=== PATIENT | female | born 1970 | race Caucasian/White ===

== ENCOUNTER 2017-01-16 10:55 | Emergency (ER) | payer MEDICAID, OTHER ==
[~2017-01-16] VITALS: Wt 71.0 kg
[2017-01-16] MEDS ORDERED: ONDANSETRON (ODT) 4 MG TAB ODT STA (11:27)
[2017-01-16] MEDS ORDERED: HYDROCODONE/APAP (5/325) TAB PO ONE (11:30)
--- NOTE | 2017-01-16 11:31 | ERD ---
ER Documentation Chief Complaint Date/Time DATE: 01/16/17 TIME: 11:30 Chief Complaint EPIGASTRIC PAIN SINCE YESTERDAY. NAUSEA NO VOMITING. AFTER EATING CARNITAS HPI 46-year-old, with history of hypertension, diabetes, hyperlipidemia presents with epigastric abdominal pain with nausea, vomiting started last night. She states that is sharp, achy, radiates to the right upper quadrant associated with nausea only. She denies fevers or chills, vomiting or diarrhea. She denies chest pain shortness of breath. ROS All systems reviewed and are negative except as per history of present illness. Medications Home Meds Active Scripts Ondansetron (Ondansetron Odt) 4 Mg Tab.rapdis, 4 MG PO Q6H Y for NAUSEA AND/OR VOMITING, #10 TAB Prov:SCOTT SOLO PA-C 01/16/17 Hydrocodone/Acetaminophen (Salcha 5-325 Tablet) 1 Each Tablet, 1 TAB PO Q6H Y for PAIN, #15 TAB Prov:SCOTT SOLO PA-C 01/16/17 Cephalexin* (Keflex*) 500 Mg Capsule, 500 MG PO TID for 10 Days, CAP Prov:SCOTT SOLO PA-C 01/16/17 Allergies Allergies: Coded Allergies: No Known Allergy (Unverified , 01/16/17) Physical Exam Vitals Vital Signs Date Time Temp Pulse Resp B/P Pulse Ox O2 Delivery O2 Flow Rate FiO2 01/16/17 11:08 98.5 90 20 137/89 99 Physical Exam General: Well-developed, well-nourished. The patient appears in no acute distress. HEENT: Head is normocephalic, atraumatic. No scleral icterus. Neck: Supple. Nontender. Lungs: Clear to auscultation. Normal air movement. Heart: Regular rate and rhythm. S1 and S2 are normal. No murmurs, gallops, or rubs. Abdomen: Soft, tender in the epigastric and right upper quadrant, nondistended. Bowel sounds are normoactive. Extremities: No clubbing or cyanosis. Normal pulses. Moving extremities x 4. No weakness. Neurologic: Alert and oriented 3. No focal deficits. Skin: Normal turgor. No rash or lesions. Result Diagram: 01/16/17 1151 01/16/17 1151 Results 24 hrs Laboratory Tests Test 01/16/17 11:45 01/16/17 11:51 Urine Color YELLOW Urine Clarity CLOUDY Urine pH 5.0 Urine Specific [place] 1.030 Urine Ketones 1+mg/dL Urine Nitrite POSITIVEmg/dL Urine Bilirubin NEGATIVEmg/dL Urine Urobilinogen NEGATIVEmg/dL Urine Leukocyte Esterase 3+Jay/ul Urine Microscopic RBC 15/HPF Urine Microscopic WBC 146/HPF Urine Bacteria FEW/HPF Urine Mucus FEW/HPF Urine Hemoglobin 2+mg/dL Urine Glucose 3+mg/dL Urine Total Protein 1+mg/dl White Blood Count 10.710^3/ul Red Blood Count 4.5710^6/ul Hemoglobin 13.5g/dl Hematocrit 39.7% Mean Corpuscular Volume 86.9fl Mean Corpuscular Hemoglobin 29.5pg Mean Corpuscular Hemoglobin Concent 34.0g/dl Red Cell Distribution Width 12.3% Platelet Count 58660^3/UL Mean Platelet Volume 10.1fl Neutrophils % 80.9% Lymphocytes % 13.0% Monocytes % 5.2% Eosinophils % 0.2% Basophils % 0.3% Nucleated Red Blood Cells % 0.0/100WBC Neutrophils # (Manual) 8.610^3/ul Lymphocytes # 1.410^3/ul Monocytes # 0.610^3/ul Eosinophils # 0.010^3/ul Basophils # 0.010^3/ul Nucleated Red Blood Cells # 0.010^3/ul Sodium Level 134mmol/L Potassium Level 4.0mmol/L Chloride Level 100mmol/L Carbon Dioxide Level 24mmol/L Anion Gap 14 Blood Urea Nitrogen 10mg/dl Creatinine 0.49mg/dl Glucose Level 310mg/dl Calcium Level 10.1mg/dl Total Bilirubin 0.4mg/dl Direct Bilirubin 0.00mg/dl Indirect Bilirubin 0.4mg/dl Aspartate Amino Transf (AST/SGOT) 16IU/L Alanine Aminotransferase (ALT/SGPT) 30IU/L Alkaline Phosphatase 93IU/L Total Protein 7.6g/dl Albumin 4.2g/dl Globulin 3.40g/dl Albumin/Globulin Ratio 1.23 Lipase 70U/L Current Medications Medications (Trade) Dose Ordered Sig/Elvin Route PRN Reason Start Time Stop Time Status Last Admin Dose Admin Ondansetron HCl (Zofran Odt) 4 mg ONCE STAT ODT 01/16/17 11:27 01/16/17 11:29 DC 01/16/17 11:43 Acetaminophen/ Hydrocodone Bitart (Salcha (5/325)) 1 tab ONCE ONCE PO 01/16/17 11:30 01/16/17 11:31 DC 01/16/17 11:42 Ceftriaxone Sodium (Rocephin) 1 gm ONCE ONCE IM 01/16/17 13:00 01/16/17 13:01 DC Lidocaine (Xylocaine 1% (Mdv) 20 ml) 2 ml ONCE ONCE IM 01/16/17 13:00 01/16/17 13:01 DC DIAGNOSTIC IMAGING REPORT Patient: WEN STYLES : 1970 Age: 46 Sex: F MR #: [id number] DOS: 01/16/17 0000 Ordering MD: SCOTT SOLO PA-C Location: [facility] Room/Bed: PROCEDURE: Abdominal Ultrasound (right upper quadrant). CLINICAL INDICATION: Abdominal pain TECHNIQUE: Multiple real-time longitudinal and transverse images of the right upper quadrant of the abdomen were acquired utilizing a curved array transducer. Images were reviewed on a high-resolution PACS workstation. COMPARISON: None FINDINGS: The liver demonstrates increased echogenicity consistent with fatty infiltration. The liver is enlarged. The portal vein is patent and flow direction is normal. No focal masses are identified. There is no evidence of intra or extrahepatic ductal dilatation. The common bile duct measures 5.1 mm in diameter. Gallstones are identified within the gallbladder. There is no gallbladder wall thickening. The visualized portions of the pancreas are unremarkable with obscuration of the tail of the pancreas. No free fluid is identified. There is no evidence of right hydronephrosis or renal calcification. There are several right renal cysts, largest measures up to 1.6 cm. The right kidney measures 10.1 cm in length. The visualized portions of the aorta and inferior vena cava are within normal limits. IMPRESSION: 1. Fatty infiltration of the liver. 2. Cholelithiasis. 3. Right renal cysts. RPTAT: HJBF .Suraj Nava MD, Date Time Electronically viewed and signed by .Suraj Nava MD, on 2016 12:28 .B/ CC: SCOTT SOLO PA-C Procedures/[facility] ED course: She was given Salcha and Zofran for pain. Medical decision makin-year-old female presents with epigastric and right upper quadrant abdominal pain since yesterday night after eating a fatty meal.Patient has evidence of a urinary tract infection, occult acute biliary colic, fatty liver. Gallbladder ultrasound shows evidence of gallstones without evidence of pericholecystic fluid or gallbladder wall thickening, i.e. acute cholecystitis, choledocholithiasis. All labs of liver function tests are normal, as well as lipase. Patient's glucose levels elevated however patient is not in DKA. She does have a significant amount of white blood cells in her urine analysis as well as nitrite positive urine, consistent with a urinary tract infection. She was given a dose of Rocephin in the emergency department, to treat for early pyelonephritis given her presentation of acute nausea vomiting and abdominal pain. She was given a dose of Salcha, Zofran emergency department, she is sleeping without any pain at this time states is hungry and stable for discharge. Departure Diagnosis: Primary Impression: UTI (urinary tract infection) Additional Impressions: Fatty liver Cholelithiasis Condition: SCOTT Chandler PA-C Jan 16, 2017 11:31
[2017-01-16 12:08] LABS: BASOPHILS % 0.3 % (0.0-2.0); EOSINOPHILS % 0.2 % (0.0-7.0); HEMATOCRIT 39.7 % (37.0-47.0); HEMOGLOBIN 13.5 g/dl (12.0-16.0); LYMPHOCYTES # 1.4 10^3/ul (0.8-2.9); MEAN CORPUSCULAR HEMOGLOBIN 29.5 pg (29.0-33.0); MEAN CORPUSCULAR VOLUME 86.9 fl (82.0-101.0); MEAN PLATELET VOLUME 10.1 fl (7.4-10.4); MONOCYTE # 0.6 10^3/ul (0.3-0.9); MONOCYTES % 5.2 % (0.0-11.0); NEUTROPHILS % 80.9 % (39.0-77.0); PLATELET COUNT 241 10^3/UL (140-415); RED BLOOD COUNT 4.57 10^6/ul (4.20-5.40); RED CELL DISTRIBUTION WIDTH 12.3 % (11.5-14.5); WHITE BLOOD COUNT 10.7 10^3/ul (4.8-10.8)
[2017-01-16 12:10] LABS: ADD UMIC YES; UR ASCORBIC ACID NEGATIVE (NEGATIVE); UR BACTERIA FEW /HPF (NONE SEEN); UR BILIRUBIN (Dip) NEGATIVE (NEGATIVE); UR BLOOD (Dip) 2+ mg/dL (NEGATIVE); UR CLARITY CLOUDY (CLEAR); UR COLOR YELLOW (YELLOW); UR GLUCOSE (Dip) 3+ mg/dL (NEGATIVE); UR KETONES (Dip) 1+ mg/dL (NEGATIVE); UR LEUKOCYTE ESTERASE (Dip) 3+ Leu/ul (NEGATIVE); UR MUCUS FEW /HPF (NONE SEEN); UR NITRITE (Dip) POSITIVE (NEGATIVE); UR RBC 15 /HPF (0-5); UR TOTAL PROTEIN (Dip) 1+ mg/dl (NEGATIVE); UR UROBILINOGEN (Dip) NEGATIVE (NEGATIVE); UR WBC CLUMPS FEW /HPF (NONE SEEN)
--- NOTE | 2017-01-16 12:28 | RADRPT ---
PROCEDURE: Abdominal Ultrasound (right upper quadrant). CLINICAL INDICATION: Abdominal pain TECHNIQUE: Multiple real-time longitudinal and transverse images of the right upper quadrant of th e abdomen were acquired utilizing a curved array transducer. Images were reviewed on a high-resoluti on PACS workstation. COMPARISON: None FINDINGS: The liver demonstrates increased echogenicity consistent with fatty infiltration. The liver is enla rged. The portal vein is patent and flow direction is normal. No focal masses are identified. Ther e is no evidence of intra or extrahepatic ductal dilatation. The common bile duct measures 5.1 mm i n diameter. Gallstones are identified within the gallbladder. There is no gallbladder wall thickenin g. The visualized portions of the pancreas are unremarkable with obscuration of the tail of the pancrea s. No free fluid is identified. There is no evidence of right hydronephrosis or renal calcification. There are several right renal cysts, largest measures up to 1.6 cm. The right kidney measures 10.1 cm in length. The visualized portions of the aorta and inferior vena cava are within normal limits. IMPRESSION: 1. Fatty infiltration of the liver. 2. Cholelithiasis. 3. Right renal cysts. RPTAT: HJBF .Suraj Nava MD, Date Time Electronically viewed and signed by .Suraj Nava MD, MD on 01/16/2017 12:28 .B/
[2017-01-16 12:47] LABS: ALBUMIN 4.2 g/dl (3.3-4.9); ALBUMIN/GLOBULIN RATIO 1.23; BILIRUBIN,INDIRECT 0.4 mg/dl (0-1.1); BILIRUBIN,TOTAL 0.4 mg/dl (0.2-1.3); CALCIUM 10.1 mg/dl (8.4-10.2); CREATININE 0.49 mg/dl (0.44-1.00); TOTAL PROTEIN 7.6 g/dl (6.1-8.1)
[2017-01-16] MEDS ORDERED: ONDA4TAB14 PO (12:55)
[2017-01-16] MEDS ORDERED: CEPH-443 PO (12:55)
[2017-01-16] MEDS ORDERED: HYDR-906 PO (12:55)
[2017-01-16] MEDS ORDERED: LIDOCAINE 1% (MDV) 20 ML INJ IM ONE (13:00)
[2017-01-16] MEDS ORDERED: CEFTRIAXONE 1 GM INJ IM ONE (13:00)
== END 2017-01-16 13:44 | disposition home or self-care (01) ==
LOC: FTE 10:55
DX: N39.0 Urinary tract infection, site not specified (principal); K76.0 Fatty (change of) liver, not elsewhere classified; K80.20 Calculus of gallbladder without cholecystitis without obstruction; R11.0 Nausea; I10 Essential (primary) hypertension; E11.9 Type 2 diabetes mellitus without complications
CPT/HCPCS: 76705; 80053; 81001; 83690; 85025; 96372; J0696; Z7502; Z7610

== ENCOUNTER 2018-01-10 09:48 | Emergency (ER) | END 2018-01-10 12:36 | disposition home or self-care (01) ==

== ENCOUNTER 2018-02-25 13:45 | Emergency (ER) | END 2018-02-25 14:22 | disposition home or self-care (01) ==